=== PATIENT | female | born 1960 | race Caucasian/White ===

== ENCOUNTER 2023-04-29 08:41 | Emergency (ER) | payer MEDICARE, SELFPAY ==
--- NOTE | ~2023-04-29 | CT_ITS ---
EXAMINATION: CT HEAD WITHOUT CONTRAST CLINICAL INFORMATION: Headache, hypertension COMPARISON: None available. TECHNIQUE: Contiguous axial imaging was performed from the skull base to vertex without intravenous administration of contrast. This CT examination was performed using dose optimization techniques as appropriate, variously including the following: *Automated exposure control *Adjustment of mA and/or kV according to patient size (this includes techniques or standardized protocols for targeted exams where dose is matched to indication/reason for exam; i.e. extremities or head) *Use of iterative reconstruction technique DLP: 633 mGy-cm FINDINGS: The ventricles and sulci are normal in size and configuration. No acute hemorrhage, mass effect or shift is evident. Light-white differentiation is maintained. In the posterior fossa, the brainstem, cerebellum and fourth ventricle image normally. The orbits and calvarium are intact. The paranasal sinuses and mastoid air cells are well pneumatized and clear. CT/CT head/brain wo IV con IMPRESSION: 1. Unremarkable noncontrast brain CT. No acute hemorrhage, mass effect or shift.
[2023-04-29 09:01] VITALS: BP 194/77; PULSE 80; RESP 16; TEMP 36.6; O2SAT 98; BMI 32.3
[2023-04-29 11:34] VITALS: BP 197/85; PULSE 63; RESP 16; TEMP 35.6; O2SAT 97
--- NOTE | 2023-04-29 12:27 | ECG_ITS ---
Test Reason : SYMPTOMATIC HYPERTENSION Blood Pressure : / mmHG Vent. Rate : 066 BPM Atrial Rate : 066 BPM P-R Int : 160 ms QRS Dur : 134 ms QT Int : 446 ms P-R-T Axes : 027 028 013 degrees QTc Int : 467 ms Sinus rhythm with Premature atrial complexes Right bundle branch block Abnormal ECG When compared to the previous EKG of 21 september 2004, RBBB noted. Referred By: Nichole Davey Electronically Signed By:TIEN HERNANDEZ
--- NOTE | 2023-04-29 12:33 | ED.GENADULT ---
HPI - General Adult General Chief complaint: General Medical Stated complaint: High blood pressure Time Seen by Provider: 04/29/23 11:48 Source: patient and RN notes reviewed Mode of arrival: ambulatory Limitations: no limitations History of Present Illness HPI narrative: This is a 63-year-old female, with a history of hypertension, presenting to the emergency department for evaluation of elevated blood pressure. Patient states that she recently flew here from [place] on Friday. She was recently diagnosed with hypertension in [place] and started on losartan. She has been taking the losartan as prescribed every morning however states that she feels as though her blood pressure is still elevated. Patient denies any chest pain or shortness breath. Denies dizziness, weakness, blurred vision. No other complaints or concerns at this time. MD complaint: Elevated blood pressure Onset (ago): day(s) Radiation: non-radiation Quality: aching Pain Consistency: constant Relieving factors: none Exacerbating factors: none Associated symptoms: denies other symptoms Treatments prior to arrival: none Related Data Allergies Allergy/AdvReac Type Severity Reaction Status Date / Time No Known Allergies Allergy Verified 04/29/23 08:55 Review of Systems Review of Systems: Yes all other systems are reviewed and are negative Constitutional: Constitutional: Reports as per HPI Physical Exam ED Vital Signs: Vital Signs - 24 hr 04/29/23 09:01 04/29/23 11:34 04/29/23 14:43 Temperature 98 F 96.0 F L Pulse Rate 80 63 60 Respiratory Rate 16 16 18 Blood Pressure 194/77 H 197/85 H 180/84 H Pulse Oximetry 98 97 Oxygen Delivery Method Room Air Room Air BMI result Body Mass Index 32.3 Const General: cooperative, comfortable and no acute distress Orientation/consciousness: patient oriented x3 Limitations: no limitations [facility] Head: Yes normal to inspection, Yes normocephalic and Yes atraumatic Ears: hearing grossly normal bilaterally General nose exam: Normal external nose present Face and sinus: Yes normal facial exam Mouth: Normal oral and palatal mucosa present, oropharynx normal and moist mucous membranes Throat: Yes posterior oropharynx normal Eyes General: appearance normal, both eyes and all related structures Eyelids: Yes eyelids normal Conjunctivae: conjunctivae normal Sclerae: sclerae normal Pupils: Equal, round and reactive pupils present EOM: EOMs intact bilaterally Neck Neck: Yes normal visual inspection, Yes full ROM and Yes no lymphadenopathy Lymphatic: no lymphadenopathy noted Chest Chest palpation & inspection: normal inspection of the chest Resp Effort & Inspection: normal respiratory effort and able to speak in complete sentences Auscultation: clear to auscultation bilaterally, no crackles, no rales, no rhonchi and no wheezes Cardio Rate: regular rate Rhythm: regular rhythm Heart sounds: S1 normal heart sound present and S2 normal heart sound present GI Inspection: Yes normal to inspection Skin General skin exam: no rashes or lesions noted Trauma: no lacerations or abrasions Wounds: no wounds Neuro General: patient oriented x3 and moves all extremities Cranial nerves: Yes Equal, round and reactive pupils present Extrem General: Yes normal to inspection Right upper extremity: normal to inspection Left upper extremity: normal to inspection Right lower extremity: normal to inspection Left lower extremity: normal to inspection Course Reevaluation(s) Reevaluation #1: CT head negative, no proteinuria, labs within normal limits. Time: 14:36 Reevaluation #2: Blood pressure improved to 180/84. Patient is asymptomatic. CT head negative, no proteinuria, labs are within normal limits. Discussed with patient that it does take several weeks for blood pressure to normalize after starting on medication. Educated the importance of taking blood pressure twice a day and recording these readings. Given return precautions. Patient understands and agrees with plan. Patient stable for discharge. Time: 14:53 Medical Decision Making Medical Decision Making [facility] Narrative: This is a 63-year-old female presenting to the emergency department for evaluation of elevated blood pressure. Patient was diagnosed with hypertension on Friday and [place]. She was prescribed losartan 50 mg. She has been taking this medication however has noticed that her blood pressure has been still elevated. She reports a slight headache, otherwise denies any dizziness, changes in her vision, chest pain or shortness of breath. On arrival, blood pressure elevated at 194/77, all other vital signs within normal limits. Patient is neurologically intact. Given slight headache, will obtain basic labs, head CT, EKG for further evaluation. Differential Diagnosis Differential Diagnoses: The differential diagnosis associated with the presentation includes Hypertensive urgency, hypertensive emergency, ICH, CVA - unlikely Admission/Observation Consideration of admission/observation: Escalation of care including admission/observation considered Patient would have been admitted to the hospital had her work up had any findings where hospital admission was appropriate and her clinical presentation warranted hospital admission. Lab Data [facility] Lab Attestation statement: I reviewed the patient's lab results. No leukocytosis, H&H normal, no proteinuria, negative troponin 04/29/23 13:14 04/29/23 13:14 Labs: Lab Results 04/29/23 04/29/23 Range/Units 13:14 14:11 WBC 5.9 (4.8-10.8) X10*3/uL RBC 4.53 (4.20-5.50) X10*6/uL Hgb 11.5 L (12.0-16.0) g/dl Hct 37.3 (37.0-47.0) % MCV 82.3 (80.0-98.0) fL MCH 25.4 L (27.0-33.0) pg MCHC 30.8 L (31.0-35.0) g/dl RDW 14.8 (11.0-16.0) % Plt Count 246 (160-400) X10*3/uL MPV 10.3 (9.4-12.3) fL Immature Gran % (Auto) 0.3 (0.0-0.4) % Neut % (Auto) 44.5 L (45-73) % Lymph % (Auto) 41.9 H (20-40) % Sherman % (Auto) 10.2 (2-11) % Eos % (Auto) 2.4 (0-4) % Baso % (Auto) 0.7 (0-2) % Lymph # (Auto) 2.5 (1.2-4.9) X10*3/uL Sherman # (Auto) 0.6 (0.1-1.2) X10*3/uL Eos # (Auto) 0.1 (0.0-0.4) X10*3/uL Baso # (Auto) 0.0 (0.0-0.2) X10*3/uL Abs Immat Gran (auto) 0.02 (0.00-0.03) X10*3/uL Absolute Neuts (auto) 2.6 (2.0-8.3) x10*3/uL Absolute Nucleated RBC 0.000 (0.0-0.012) X10*3/uL Nucleated RBC % (auto) 0.0 (0.0-0.2) /100WBC Sodium 142 (135-145) mmol/L Potassium 3.4 (3.3-5.1) mmol/L Chloride 107 (96-108) mmol/L Carbon Dioxide 27 (22-29) mmol/L Anion Gap 11 L (12-20) BUN 9 (9-16) mg/dL Creatinine 0.64 (0.5-1.4) mg/dL Estim Creat Clear Calc 85.9 Estimated GFR > 60 Random Glucose 92 (60-115) mg/dL Calcium 9.3 (8.4-10.2) mg/dL Total Bilirubin 0.3 (0.0-1.0) mg/dL Direct Bilirubin 0.1 (0.0-0.5) mg/dL AST 18 (5-31) U/L ALT 27 (0-31) U/L Alkaline Phosphatase 55 (39-117) U/L Troponin I High Sens 3.8 (<3.5-17.0) ng/L Total Protein 7.3 (6.5-8.0) g/dL Albumin 4.1 (3.5-5.0) g/dL Urine Color Straw Urine Appearance Hazy Urine pH 6.0 (5.0-9.0) Ur Specific [place] 1.015 (1.005-1.025) Urine Protein Negative (Neg-Trace) mg/dL Urine Glucose (UA) Negative (Negative) mg/dL Urine Ketones Negative (Negative) mg/dL Urine Blood Trace (Negative) Urine Nitrite Negative (Negative) Ur Leukocyte Esterase Negative (Negative) Urine RBC 6-10 H (0-2) /HPF Urine WBC 0-5 (0-5) /HPF Ur Squamous Epith Cells 6-10 (0-2) /HPF Urine Bacteria 4+ (None Seen) Hyaline Casts 0-2 (0-2) /LPF Independent Interpretation I performed an independent interpretation of an: EKG Interpretation: Sinus rhythm with premature atrial complexes, there is a right bundle branch block, ventricular rate 66 beats per minute, ME interval 160. QTC 467. No ST elevation or depression. Last EKG was performed in 2004 in this emergency room. Radiology Impression Discussion of test interpretation with radiology: I have reviewed the radiologist's reading. Radiologist Impression: EXAMINATION: CT HEAD WITHOUT CONTRAST CLINICAL INFORMATION: Headache, hypertension COMPARISON: None available. TECHNIQUE: Contiguous axial imaging was performed from the skull base to vertex without intravenous administration of contrast. This CT examination was performed using dose optimization techniques as appropriate, variously including the following: *Automated exposure control *Adjustment of mA and/or kV according to patient size (this includes techniques or standardized protocols for targeted exams where dose is matched to indication/reason for exam; i.e. extremities or head) *Use of iterative reconstruction technique DLP: 633 mGy-cm FINDINGS: The ventricles and sulci are normal in size and configuration. No acute hemorrhage, mass effect or shift is evident. Light-white differentiation is maintained. In the posterior fossa, the brainstem, cerebellum and fourth ventricle image normally. The orbits and calvarium are intact. The paranasal sinuses and mastoid air cells are well pneumatized and clear. CT/CT head/brain wo IV con IMPRESSION: 1. Unremarkable noncontrast brain CT. No acute hemorrhage, mass effect or shift. Dictated By: Bjorn Sheets MD Chronic Conditions Patient?s care impacted by: Hypertension Discharge Plan Discharge Clinical Impression: Hypertension Patient Disposition: Home, Self-Care Instructions: Hypertension (ED) Additional Instructions: Please continue taking all at home medications. Continue taking Losartan. It does take several weeks for your blood pressure to be managed with this medication. Take your blood pressure twice a day. Make sure your resting 10 minutes before taking her blood pressure, take this seated while your feet are planted on the ground and you have back support. Drink plenty of fluids get plenty of rest. Your blood work was reassuring. Your CT scan was normal. If any new or worsening symptoms occur including but not limited to worsening headache, chest pain, shortness breath, please return for re-evaluation. Please follow-up with your primary care physician. Contin?e tomando todos los medicamentos en casa. Contin?e tomando Losart?n. Se necesitan varias semanas para controlar carvalho presi?n arterial con raine medicamento. T?mese la presi?n arterial dos veces al d?a. Aseg?rese de descansar 10 minutos antes de tomarle la presi?n arterial, h?tanya sentado con los pies plantados en el suelo y con apoyo para la espalda. Hodan muchos l?quidos y descanse mucho. Tu an?lisis de yeimi fue tranquilizador. Carvalho tomograf?a computarizada fue normal. Si se presenta alg?n s?ntoma nuevo o que empeora, incluidos, entre otros, empeoramiento del dolor de shelly, dolor en el pecho y dificultad para respirar, regrese para key reevaluaci?n. Por favor jason un seguimiento con carvalho m?dico de atenci?n primaria. Interventions: ED Discharge Assessment Last Done: 04/29/23 15:37 Discharge Date/Time: 04/29/23 15:38 Print Language: Yakut
[2023-04-29 13:19] LABS: MANUAL DIFF FLAG NO
[2023-04-29 13:24] LABS: Basophils Percent Auto 0.7 % (0-2); Eosinophils Absolute Auto 0.1 X10*3/uL (0.0-0.4); Eosinophils Percent Auto 2.4 % (0-4); Hematocrit 37.3 % (37.0-47.0); Hemoglobin 11.5 g/dl (12.0-16.0); Imm Gran Abs Auto 0.02 X10*3/uL (0.00-0.03); Imm Gran Pct Auto 0.3 % (0.0-0.4); Lymphocytes Absolute Auto 2.5 X10*3/uL (1.2-4.9); Lymphocytes Percent Auto 41.9 % (20-40); Mean Corpuscular HGB Conc 30.8 g/dl (31.0-35.0); Mean Corpuscular Hemoglobin 25.4 pg (27.0-33.0); Mean Corpuscular Volume 82.3 fL (80.0-98.0); Mean Platelet Volume 10.3 fL (9.4-12.3); Monocytes Absolute Auto 0.6 X10*3/uL (0.1-1.2); Monocytes Percent Auto 10.2 % (2-11); Neutrophils Absolute Auto 2.6 x10*3/uL (2.0-8.3); Neutrophils Percent Auto 44.5 % (45-73); Platelet Count 246 X10*3/uL (160-400); Red Blood Count 4.53 X10*6/uL (4.20-5.50); Red Cell Distribution Width 14.8 % (11.0-16.0); White Blood Count 5.9 X10*3/uL (4.8-10.8)
[2023-04-29 13:43] LABS: Alanine Aminotransferase 27 U/L (0-31); Albumin Level 4.1 g/dL (3.5-5.0); Alkaline Phosphatase 55 U/L (39-117); Anion Gap 11 (12-20); Aspartate Amino Transferase 18 U/L (5-31); Bilirubin Direct 0.1 mg/dL (0.0-0.5); Bilirubin Total 0.3 mg/dL (0.0-1.0); Blood Urea Nitrogen 9 mg/dL (9-16); Calcium 9.3 mg/dL (8.4-10.2); Carbon Dioxide 27 mmol/L (22-29); Chloride 107 mmol/L (96-108); Creatinine Clr Calc Pharmacy 85.9; Estimated Glomerular Filt Rate > 60; Glucose Random 92 mg/dL (60-115); Potassium 3.4 mmol/L (3.3-5.1); Sodium 142 mmol/L (135-145); Total Protein 7.3 g/dL (6.5-8.0)
[2023-04-29 13:49] LABS: Troponin-I High Sensitivity 3.8 ng/L (<3.5-17.0)
[2023-04-29 14:32] LABS: Appearance Urine Hazy; Color Urine Straw; Glucose Urine UA Negative (Negative); Leukocyte Esterase Urine Negative (Negative); Nitrite Urine Negative (Negative); Specific Gravity - Urine 1.015 (1.005-1.025); UMIC TRIGGER UACC YES; Urine Blood Trace (Negative); Urine Ketones Negative (Negative); Urine Protein Negative (Neg-Trace)
[2023-04-29 14:38] LABS: Bacteria Urine 4+ (None Seen); Hyaline Casts Urine 0-2 /LPF (0-2); WBC Urine 0-5 /HPF (0-5)
[2023-04-29 14:43] VITALS: BP 180/84; PULSE 60; RESP 18
== END 2023-04-29 15:38 | disposition home or self-care (01) ==
PROVIDERS: Physician Assistant Medical; Emergency Provider Emergency Medicine Emergency Medical Services
DX: R51.9 Headache, unspecified (principal); I10 Essential (primary) hypertension; I45.10 Unspecified right bundle-branch block; Z79.899 Other long term (current) drug therapy
CPT/HCPCS: 36415; 70450; 80048; 80076; 81001; 84484; 85025; 93005; 99284

== ENCOUNTER → 2023-04-29 12:27 | Outpatient (BNV) | payer MEDICARE, SELFPAY | PROVIDERS: Emergency Provider Emergency Medicine Emergency Medical Services; Visit Provider Internal Medicine | DX: I49.1 Atrial premature depolarization (principal); R94.31 Abnormal electrocardiogram [ECG] [EKG] | CPT/HCPCS: 93010 ==